=== PATIENT | male | born 1935 | race Caucasian/White ===

== ENCOUNTER → 2019-02-06 07:12 | Outpatient (CLI) | payer OTHER | END | disposition home or self-care (01) | LOC: LAB 07:12 | DX: Z12.5 Encounter for screening for malignant neoplasm of prostate (principal); I11.9 Hypertensive heart disease without heart failure ==

== ENCOUNTER 2019-08-13 07:05 | Outpatient (CLI) | payer OTHER | END 2019-08-13 07:12 | disposition home or self-care (01) | LOC: LAB 07:05 | DX: I11.9 Hypertensive heart disease without heart failure (principal) ==

== ENCOUNTER 2020-04-03 06:11 | Outpatient (CLI) | payer OTHER | END 2020-04-03 06:27 | disposition home or self-care (01) | LOC: LAB 06:11 | PROVIDERS: ATTEND Specialist | DX: I11.9 Hypertensive heart disease without heart failure (principal) ==

== ENCOUNTER 2020-07-29 11:21 | Outpatient (CLI) | payer OTHER | END 2020-07-29 12:30 | disposition home or self-care (01) | LOC: PPH VACUNA 11:21 | PROVIDERS: ATTEND Emergency Medicine Pediatric Emergency Medicine | DX: Z23 Encounter for immunization (principal) ==

== ENCOUNTER 2020-08-19 09:47 | Outpatient (CLI) | payer OTHER | END 2020-08-19 15:55 | disposition home or self-care (01) | LOC: PPH VACUNA 09:47 | PROVIDERS: ATTEND Emergency Medicine Pediatric Emergency Medicine | DX: Z23 Encounter for immunization (principal) ==

== ENCOUNTER 2020-10-06 07:05 | Outpatient (CLI) | payer OTHER | END 2020-10-06 07:11 | disposition home or self-care (01) | LOC: LAB 07:05 | PROVIDERS: ATTEND Specialist | DX: Z12.5 Encounter for screening for malignant neoplasm of prostate (principal); I11.9 Hypertensive heart disease without heart failure ==

== ENCOUNTER 2021-04-07 07:42 | Outpatient (CLI) | payer OTHER | END 2021-04-07 07:47 | disposition home or self-care (01) | LOC: LAB 07:42 | PROVIDERS: ATTEND Specialist | DX: N39.0 Urinary tract infection, site not specified (principal); I11.9 Hypertensive heart disease without heart failure; N41.8 Other inflammatory diseases of prostate ==

== ENCOUNTER 2021-04-27 08:00 | Outpatient (CLI) | payer OTHER | END 2021-04-27 08:30 | disposition home or self-care (01) | LOC: PPH VACUNA 08:00 | PROVIDERS: ATTEND Emergency Medicine Pediatric Emergency Medicine | DX: Z23 Encounter for immunization (principal) ==

== ENCOUNTER 2021-08-03 08:58 | Outpatient (CLI) | payer OTHER | END 2021-08-03 09:57 | disposition home or self-care (01) | LOC: LAB 08:58 | DX: U07.1 COVID-19 (principal) ==

== ENCOUNTER → 2021-09-04 07:48 | Outpatient (CLI) | payer OTHER | END | disposition home or self-care (01) | LOC: LAB 07:48 | PROVIDERS: ATTEND Specialist | DX: Z12.5 Encounter for screening for malignant neoplasm of prostate (principal); I11.9 Hypertensive heart disease without heart failure; N40.0 Benign prostatic hyperplasia without lower urinary tract symptoms ==

== ENCOUNTER → 2022-03-09 07:28 | Outpatient (CLI) | payer OTHER | END | disposition home or self-care (01) | LOC: LAB 07:28 | PROVIDERS: ATTEND Specialist | DX: I11.9 Hypertensive heart disease without heart failure (principal) ==

== ENCOUNTER 2022-12-17 07:06 | Outpatient (CLI) | payer OTHER | END 2022-12-17 07:12 | disposition home or self-care (01) | LOC: LAB 07:06 | PROVIDERS: ATTEND Specialist | DX: I11.9 Hypertensive heart disease without heart failure (principal); N39.0 Urinary tract infection, site not specified; Z12.5 Encounter for screening for malignant neoplasm of prostate ==

== ENCOUNTER 2023-02-08 13:17 | Outpatient (CLI) | payer OTHER | END 2023-02-08 13:20 | disposition home or self-care (01) | LOC: RAD 13:17 | PROVIDERS: ATTEND Specialist | DX: M25.522 Pain in left elbow (principal) ==

== ENCOUNTER 2023-02-15 10:13 | Outpatient (CLI) | payer OTHER | END 2023-02-15 14:35 | disposition home or self-care (01) | LOC: TOM 10:13 | PROVIDERS: ATTEND Specialist | DX: M25.822 Other specified joint disorders, left elbow (principal) ==

== ENCOUNTER 2023-03-15 08:39 | Outpatient (CLI) | payer OTHER | END 2023-03-15 08:55 | disposition home or self-care (01) | LOC: MRI 08:39 | PROVIDERS: ATTEND Physical Medicine & Rehabilitation | DX: S42.492A Other displaced fracture of lower end of left humerus, initial encounter for closed fracture (principal) | CPT/HCPCS: 73221 ==

== ENCOUNTER 2023-05-13 13:14 | Outpatient (CLI) | payer OTHER ==
[~2023-05-13 13:14] MED LIST: DICLOFENAC POTA50 MG PO
== END 2023-05-13 13:25 | disposition home or self-care (01) ==
LOC: RAD 13:14
PROVIDERS: ATTEND Physical Medicine & Rehabilitation
DX: M25.522 Pain in left elbow (principal); Z77.018 Contact with and (suspected) exposure to other hazardous metals; Z88.0 Allergy status to penicillin

== ENCOUNTER 2023-05-17 07:18 | Emergency (ER) | payer OTHER ==
[~2023-05-17] VITALS: Ht 170.2 cm; Wt 63.5 kg
[2023-05-17 09:33] LABS: HEMATOCRIT 34.4 % (39.0-48.0); HEMOGLOBIN 11.4 g/dL (13-16.00); MEAN CELL VOLUME 96.3 fL (80.0-100.00); MEAN CORPUSCULAR HEMOGLOBIN 32.1 pg (27.00-32.0); MEAN CORPUSCULAR HGB CONC 33.3 g/dl (32.0-36.0); PLATELET COUNT 148 K/uL (150-450); RED BLOOD COUNT 3.57 M/uL (4.00-6.00); RED CELL DISTRIBUTION WIDTH 14.9 % (11.5-14.5)
[2023-05-17 09:44] LABS: ERYTHROCYTE SEDIMENTATION RATE 118 mm/hr
[2023-05-17 09:50] LABS: ALBUMIN 2.9 gm/dL (3.4-5.0); BILIRUBIN TOTAL 0.42 mg/dL (0.3-1.2); CALCIUM 8.7 mg/dL (8.5-10.1); CREATININE SERUM 0.62 mg/dL (0.70-1.30); GFR 123.29; GLOBULINA 5.3 G/DL (2.4-3.5); POTASSIUM 3.79 mEq/L (3.5-5.1); TOTAL PROTEIN 8.2 gm/dL (6.4-8.2)
[2023-05-17 09:57] LABS: C-REACTIVE PROTEIN 2.26 MG/DL (0.00-0.29)
== END 2023-05-17 13:13 | disposition home or self-care (01) ==
LOC: ER 07:19
PROVIDERS: General Practice
DX: C76.42 Malignant neoplasm of left upper limb (principal); Z88.0 Allergy status to penicillin; Z88.8 Allergy status to other drugs, medicaments and biological substances; Z88.2 Allergy status to sulfonamides
CPT/HCPCS: 73220

== ENCOUNTER 2023-05-17 11:10 | Outpatient (CLI) | payer OTHER | END 2023-05-17 11:12 | disposition home or self-care (01) | LOC: LAB 11:10 | PROVIDERS: ATTEND General Practice | DX: Z12.89 Encounter for screening for malignant neoplasm of other sites (principal); Z88.0 Allergy status to penicillin; Z77.098 Contact with and (suspected) exposure to other hazardous, chiefly nonmedicinal, chemicals ==

== ENCOUNTER → 2023-05-21 08:33 | Outpatient (CLI) | payer OTHER ==
[2023-05-21 09:25] LABS: HEMATOCRIT 34.4 % (39.0-48.0); HEMOGLOBIN 11.7 g/dL (13-16.00); MEAN CELL VOLUME 95.5 fL (80.0-100.00); MEAN CORPUSCULAR HEMOGLOBIN 32.6 pg (27.00-32.0); MEAN CORPUSCULAR HGB CONC 34.1 g/dl (32.0-36.0); PLATELET COUNT 148 K/uL (150-450); RED CELL DISTRIBUTION WIDTH 14.9 % (11.5-14.5)
[2023-05-21 10:22] LABS: BILIRUBIN TOTAL 0.52 mg/dL (0.3-1.2); CALCIUM 8.9 mg/dL (8.5-10.1); CREATININE SERUM 0.74 mg/dL (0.70-1.30); GFR 100.52; GLOBULINA 4.9 G/DL (2.4-3.5); POTASSIUM 3.86 mEq/L (3.5-5.1); TOTAL PROTEIN 7.9 gm/dL (6.4-8.2)
[2023-05-21 10:50] LABS: PROSTATIC SPECIFIC ANTIGEN 5.81 NG/ML (0.010-4.00)
== END | disposition home or self-care (01) ==
LOC: LAB 08:33
DX: C79.89 Secondary malignant neoplasm of other specified sites (principal); N40.0 Benign prostatic hyperplasia without lower urinary tract symptoms

== ENCOUNTER → 2023-05-23 | Outpatient (CLI) | payer OTHER | END | disposition home or self-care (01) | LOC: TOM 07:04 | PROVIDERS: ATTEND Orthopaedic Surgery | DX: C79.89 Secondary malignant neoplasm of other specified sites (principal) | CPT/HCPCS: 71260; 74177; Q9965 ==

== ENCOUNTER 2023-05-24 09:04 | Outpatient (CLI) | payer OTHER | END 2023-05-24 09:06 | disposition home or self-care (01) | LOC: NUCLEAR 09:04 | DX: C79.89 Secondary malignant neoplasm of other specified sites (principal) | CPT/HCPCS: 78315; A9503 ==

== ENCOUNTER 2023-06-16 11:31 | Outpatient (CLI) | payer OTHER | END 2023-06-16 11:32 | disposition home or self-care (01) | LOC: LAB 11:31 | PROVIDERS: ATTEND Internal Medicine Hematology & Oncology | DX: C18.0 Malignant neoplasm of cecum (principal); Z88.0 Allergy status to penicillin; Z88.7 Allergy status to serum and vaccine ==

== ENCOUNTER 2023-06-21 08:19 | Outpatient (CLI) | payer OTHER | END 2023-06-21 08:20 | disposition home or self-care (01) | LOC: NUCLEAR 08:19 | DX: C34.90 Malignant neoplasm of unspecified part of unspecified bronchus or lung (principal); C79.9 Secondary malignant neoplasm of unspecified site | CPT/HCPCS: 78815; A9552 ==